=== PATIENT | female | born 1950 | race Caucasian/White ===

== ENCOUNTER 2019-11-19 21:30 | Observation (INO) ==
[2019-11-19] MEDS ORDERED: Aspirin 81 MG TAB.CHEW PO ONE (21:49)
[2019-11-19 22:07] LABS: Basophils % 0.6 %; Eosinophils # 0.3 K/mcL (0.0-0.6); Hematocrit 42.4 % (35.3-44.9); Hemoglobin 14.6 g/dL (11.5-15.4); Immature Granulocytes % 0.2 % (0-4); Lymphocytes # 1.7 K/mcL (0.6-4.6); Lymphocytes % 25.9 %; Mean Corpuscular HGB Conc 34.4 g/dL (31.6-35.5); Mean Corpuscular Hemoglobin 30.5 pg (28.0-33.3); Mean Corpuscular Volume 88.7 fL (83.0-100.0); Monocytes # 0.4 K/mcL (0.0-1.3); Monocytes % 6.1 %; Neutrophils # 4.1 K/mcL (1.6-8.9); Platelet Count 283 K/mcL (140-400); Red Blood Count 4.78 M/mcL (3.82-4.97); Red Cell Distribution Width 12.6 % (11.5-14.5); Segmented Neutrophils % 62.2 %; White Blood Count 6.6 K/mcL (4.3-11.1)
[2019-11-19 22:11] LABS: INR 0.9; Prothrombin Time 10.1 Seconds (9.4-12.1)
[2019-11-19] MEDS: Nitroglycerin 0.4 MG TAB.SUBL SL SCH (22:11)
[2019-11-19 22:29] LABS: BUN/Creatinine Ratio 22 (6-26); Blood Urea Nitrogen 18 mg/dL (8-23); Calcium 9.2 mg/dL (8.6-10.3); Carbon Dioxide 26 mEq/L (23-29); Chloride 105 mEq/L (98-107); Glucose 101 mg/dL (70-105); Osmolality,Calculated 290 (280-300); Potassium 3.8 mEq/L (3.5-5.1); Sodium 139 mEq/L (136-145); eGFR For African Americans > 60 (> 60); eGFR For Non-African Americans > 60 (> 60)
[2019-11-19 22:30] LABS: Troponin I < 0.03 ng/mL (< 0.04)
[2019-11-20] MEDS: Nitroglycerin 0.4 MG TAB.SUBL SL SCH ×3 (02:24→05:37)
[2019-11-20] MEDS ORDERED: Nitroglycerin 0.4 MG TAB.SUBL SL ONE ×2 (03:45→03:46)
[2019-11-20] MEDS ORDERED: Acetaminophen 325 MG TABLET PO PRN (04:16)
[2019-11-20] MEDS ORDERED: Mag Hydrox/Al Hydrox/Simeth 30 ML UDC PO PRN (04:16)
[2019-11-20] MEDS ORDERED: Naloxone 0.4 MG/ML INJ IVP PRN (04:16)
[2019-11-20] MEDS ORDERED: Ondansetron ODT 4 MG TAB.RAPDIS SL PRN (04:16)
[2019-11-20] MEDS ORDERED: *HR* Heparin 5,000 UNIT/ML VIAL SQ SCH (06:00)
[2019-11-20] MEDS ORDERED: Aspirin Enteric Coated 81 MG Tablet PO SCH (09:00)
[2019-11-20] MEDS ORDERED: Lisinopril 20 MG TABLET PO SCH (09:00)
[2019-11-20] MEDS ORDERED: Regadenoson 0.4 MG/5 ML SYRINGE IVP ONE (09:42)
[2019-11-20 14:20] VITALS: BP 148/87
[2019-11-20] MEDS ORDERED: Isovue-370 500 ML BOTTLE IVP ONE (15:33)
== END 2019-11-20 17:42 | disposition home or self-care (01) ==
LOC: EMEROOARM 21:30 → 3BNU 21:30 → SUATTDRO 11-20 02:59 → 3BNU 11-20 03:19
PROVIDERS: ADMIT Internal Medicine; ATTEND Internal Medicine